=== PATIENT | male | born 1960 | race Two or more races ===

== ENCOUNTER 2018-03-26 15:00 | Emergency (ER) | payer MEDICAID ==
--- NOTE | 2018-03-26 15:19 | ED Physician Chart ---
ED Chief Complaint/HPI - Patient Information Date Seen:: 03/26/18 Time Seen:: 15:06 Chief Complaint:: vomiting x 1, somnolent History of Present Illness:: vomiting x 1, somnolent in a man who has undergone craniotomy in 2010 and 2016. has undergone radiation and chemotherapy. Elevated dilantin level of 45. he is also on keppra. left facial droop is new according to daughter and who last saw the patient 2 days ago. nurse at facility said that she has never seen a left facial droop on the patient. Allergies:: Allergies Allergy/AdvReac Type Severity Reaction Status Date / Time No Known Allergies Allergy Verified 03/26/18 15:07 Vitals:: Vital Signs - 8 hr 03/26/18 15:06 Temp 98.4 F HR 84 RR 16 BP 125/74 O2 Sat % 95 Historian:: EMS, Medical Records Review:: Nurse's Note Reviewed, Transfer documents Reviewed ED Review of Systems - Review of Systems General/Constitutional: No fever, No chills, No weight loss, No weakness, No diaphoresis, No edema, No loss of appetite Skin: No skin lesions, No rash, No bruising Head: No headache, No light-headedness Eyes: No loss of vision, No pain, No diplopia ENT: No earache, No nasal drainage, No sore throat, No tinnitus Neck: No neck pain, No swelling, No thyromegaly, No stiffness, No mass noted Cardio Vascular: No chest pain, No palpitations, No PND, No orthopnea, No edema Pulmonary: No SOB, No cough, No sputum, No wheezing GI: Nausea, Vomiting G/U: No dysuria, No frequency, No hematuria Musculoskeletal: No bone or joint pain, No back pain, No muscle pain Endocrine: No polyuria, No polydipsia Psychiatric: No prior psych history, No depression, No anxiety, No suicidal ideation Hematopoietic: No bruising, No lymphadenopathy Allergic/Immuno: No urticaria, No angioedema Neurological: Focal symptoms (left facial droop), Weakness, Other (more somnolent) ED Past Medical History - Past Medical History Obtainable: No Past Medical History: Other (glioblastoma (benign in 2010); cancerous brain tumor treated by radiation and chemotherapy) Surgical History: other (craniotomy) Family Medical History - Family Member Mother History Unknown: Yes ED Physical Exam - Physical Examination Other Gen/Cons comments:: pale and chronically ill appearing. left facial droop primarily somnolent, but opens up his eyes to verbal stimulation and occasionally spontaneously. Other Head comments:: R craniotomy scar Other Skin comments:: R craniotomy scar evidence of prior sacral scarring (decubitus) ENMT: External ears, nose nl Neck: Nontender Respiratory: Nl effort/Exclusion, Clear to Auscultation, No Wheeze/Rhonchi/Rales Cardio Vascular: RRR GI: No tenderness/rebounding/guarding Other Neuro/Psych comments:: left facial droop nonverbal. LUE atrophy and 4/5. LLE 4/5. Misc: Normal back ED Assessment - Assessment General Assessment: Dr. Posey agreed to admit the patient at 16:26. Neurologist machine operations supervisor, Dr. Hernandez , concerned that the new left facial droop may be from his brain tumor. Patient is followed by Dr. Arora, oncologist, at [facility]. The neurosurgeon who follows him is called Dr. Mcgregor at [facility] and Dr. Raza Ellis at [facility]. Assessment/Comments:: spoke with Dr. Jayesh Luevano of the neurosurgical group that operated on this patient a year ago. Dr. Jurado operated on him in 04/2018. Dr. Luevano said that Dr. Estella Resendiz from [facility] accepted the patient in transfer ER to ER higher level of care to a facility that has neurosurgery on staff, radiation and chemotherapy. ED Septic Shock - . Is Septic Shock (SBP<90, OR Lactate>4 mmol\L) present?: No - <6hrs of presentation: Vital Signs: Vital Signs - 8 hr 03/26/18 15:06 Temp 98.4 F HR 84 RR 16 BP 125/74 O2 Sat % 95 ED Reassessment (Disposition) - Reassessment Reassessment Condition:: Unchanged - Diagnosis Diagnosis:: New onset left facial droop Elevated Dilantin Vomiting x 1 Low sodium and low chloride Cerebral infarct with left sided hemiparesis Epilepsy Diabetes mellitus Depression Hypertension Malignant neoplasm of the brain Depression G-tube dependent - Patient Disposition Discharge/Transfer:: Acute Care (other hosp) Admitted to:: Telemetry Condition at Disposition:: Stable, Unchanged
[2018-03-26 15:55] LABS: % BASOPHILS 0.7 % (0.0-2.0); % EOSINOPHILS 0.1 % (0.0-5.0); % LYMPHOCYTES 12.4 % (20.0-50.0); % MONOCYTES 5.8 % (2.0-10.0); HEMATOCRIT 41.5 % (41.0-60); HEMOGLOBIN 14.3 gm/dL (12-16); LYMPHOCYTE ABSOLUTE 0.8 Th/cmm (1.5-3.0); MEAN CORPUSCULAR HEMOGLOBIN 32.1 pg (26.0-30.0); MEAN CORPUSCULAR HGB CONC 34.5 pg (28.0-36.0); MEAN PLATELET VOLUME 7.6 fl; MONOCYTE ABSOLUTE 0.4 Th/cmm (0.3-1.0); NEUTROPHILE ABSOLUTE 5.5 Th/cmm (1.8-8.0); PLATELET COUNT 255 Th/cmm (150-400); RED BLOOD COUNT 4.46 Mil/cmm (4.30-5.70); RED CELL DISTRIBUTION WIDTH 12.9 % (11.5-20.0); WHITE BLOOD COUNT 6.7 Th/cmm (4.8-10.8)
[2018-03-26 16:10] LABS: ALB/GLOB RATIO 1.2 (1.0-1.8); ALBUMIN 4.3 gm/dL (4.2-5.5); ALKALINE PHOSPHATASE 111 U/L (34-104); ANION GAP 13.2 (7.0-16.0); BILIRUBIN,TOTAL 0.3 mg/dL (0.3-1.0); BUN - UREA NITROGEN 11 mg/dL (7-25); CALCIUM SERUM 9.6 mg/dL (8.6-10.3); CHLORIDE 96 mEq/L (98-107); CREATININE - SERUM 0.4 mg/dL (0.7-1.3); GFR AFRICAN-AMERICAN > 60.0 ml/min (>90); GFR NON AFRICAN-AMERICAN > 60.0 ml/min; GLUCOSE 253 mg/dL (70-105); MAGNESIUM 2.1 mg/dL (1.9-2.7); PHOSPHOROUS 3.3 mg/dL (2.5-5.0); POTASSIUM SERUM 4.2 mEq/L (3.5-5.1); SGOT 15 U/L (13-39); SGPT/ALT 24 U/L (7-52); SODIUM SERUM 132 mEq/L (136-145); TOTAL PROTEIN,SERUM 7.8 gm/dL (6.0-8.3)
[2018-03-26 16:15] LABS: PHENYTOIN 69.1 ug/ml (10.0-20.0)
[2018-03-26] MEDS ORDERED: Sodium Chloride 0.9% 1,000 ML IV ONE (16:16)
[2018-03-26 18:46] LABS: URINE SOURCE CATH
[2018-03-26 18:49] LABS: URINE BILIRUBIN NEGATIVE (NEGATIVE); URINE BLOOD NEGATIVE (NEGATIVE); URINE GLUCOSE (UA) 250 mg/dL (NEGATIVE); URINE KETONE NEGATIVE (NEGATIVE); URINE LEUKOCYTE ESTERASE SMALL (NEGATIVE); URINE NITRATE NEGATIVE (NEGATIVE); URINE PH 7.5 (4.6 - 8.0); URINE PROTEIN NEGATIVE (NEGATIVE); URINE UROBILINOGEN 0.2 E.U./dL (0.2 - 1.0)
[2018-03-26 19:00] LABS: URINE COLOR YELLOW
[2018-03-26 19:01] LABS: AMPHETAMINE URINE NEGATIVE (NEGATIVE); BARBITURATES URINE POSITIVE (NEGATIVE); BENZODIAZEPINES QUAL URINE NEGATIVE (NEGATIVE); CANNABINOID THC NEGATIVE (NEGATIVE); COCAINE METABOLITE QUAL URINE NEGATIVE (NEGATIVE); METHADONE URINE NEGATIVE (NEGATIVE); METHAMPHETAMINES QUAL URINE NEGATIVE (NEGATIVE); OPIATES (MORPHINE) QUAL. URINE NEGATIVE (NEGATIVE); PHENCYCLIDINE (PCP) URINE NEGATIVE (NEGATIVE); TRICYCLICS (TCA) QUAL. URINE NEGATIVE (NEGATIVE); URINE CLARITY CLEAR (CLEAR); URINE MICROSCOPIC INDICATED? YES
[2018-03-26 19:02] LABS: URINE RBC 0-2 /hpf (0-5)
[2018-03-26 19:03] LABS: URINE AMORPHOUS SEDIMENT MODERATE PHOSPHATES (NONE SEEN); URINE BACTERIA FEW /hpf (NONE SEEN); URINE EPITHELIAL CELLS FEW /lpf (FEW)
--- NOTE | 2018-03-27 09:16 | Diagnostic Imaging Report ---
CT scan of the brain without intravenous contrast HISTORY: Stroke, CVA Total DLP equals 925 CTDI equals 63.0 Axial sections were obtained from the base of the skull to the vertex. Prior exams are not available for comparison. There are extensive surgical changes with craniotomy defects noted about the right frontal parietal region of the skull. Ventricular catheter tubing traverses the right occipital region. The tip is in the vicinity of the third ventricle. Ventricular shunt tubing traverses the left frontal parietal region. The tip extends in close proximity to the region of the foramen of Link. However, there is a severely diminished size of the lateral ventricles. Margins cannot be clearly outlined. Extensive hypodensity noted through the supratentorial white matter regions. More focal hypodensity in changes suggesting encephalomalacia is seen in the right frontal area. No acute intracerebral hemorrhage. No extra-axial masses or abnormal fluid collections. IMPRESSION: 1. Extensive surgical changes with ventricular shunt placements as noted above 2. Markedly diminished size of the lateral ventricles. The finding should be correlated clinically and with the patient's surgical and prior medical history. 3. Extensive supratentorial white matter changes. Again, the finding should be correlated with patient's prior medical and surgical history. Ischemic vascular changes cannot be excluded 4. Focal encephalomalacia within the right frontal region with adjacent surgical change. Findings may be related to surgical sequelae. Again, correlation with patient history is needed.
== END 2018-03-26 23:45 | disposition short-term general hospital (02) ==
LOC: ER 15:00
DX: T42.0X1A Poisoning by hydantoin derivatives, accidental (unintentional), initial encounter (principal); I69.352 Hemiplegia and hemiparesis following cerebral infarction affecting left dominant side; E86.0 Dehydration; G40.909 Epilepsy, unspecified, not intractable, without status epilepticus; I10 Essential (primary) hypertension; E11.9 Type 2 diabetes mellitus without complications; E87.1 Hypo-osmolality and hyponatremia; E87.8 Other disorders of electrolyte and fluid balance, not elsewhere classified; C71.9 Malignant neoplasm of brain, unspecified; F32.9 Major depressive disorder, single episode, unspecified; R89.2 Abnormal level of other drugs, medicaments and biological substances in specimens from other organs, systems and tissues; Z93.1 Gastrostomy status; Y92.89 Other specified places as the place of occurrence of the external cause
CPT/HCPCS: 99285; 96361; 96374; 93005; 70450; 36415; 36416; 80299; 82948; 83605 ×2; 80307; 85025; 81001; 83036; 83735; 80185; 84100; 80053; J2405; J7030; Z7610